=== PATIENT | male | born 1995 | race Caucasian/White ===

== ENCOUNTER 2017-03-22 13:27 | Emergency (ER) | payer OTHER ==
[~2017-03-22] VITALS: Ht 188 cm; Wt 72.7 kg
[2017-03-22 13:30] VITALS: BP 132/63; PULSE 73; RESP 18; TEMP 97.7; O2SAT 97
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
[2017-03-22] MEDS ORDERED: IBUP800T23 PO (14:36)
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
== END 2017-03-22 15:02 | disposition home or self-care (01) ==
LOC: PHEFT 13:27
DX: S90.32XA Contusion of left foot, initial encounter (principal); S93.602A Unspecified sprain of left foot, initial encounter; X58.XXXA Exposure to other specified factors, initial encounter; Z87.09 Personal history of other diseases of the respiratory system; Y93.55 Activity, bike riding
CPT/HCPCS: 73630; 99283; E0113; L3260